=== PATIENT | male | born 1940 | race Caucasian/White ===

== ENCOUNTER 2022-06-05 06:23 | Day surgery (SDC) | payer MEDICARE, OTHER, SELFPAY ==
[2022-06-05] VITALS (8 sets, daily range): BP systolic 127–175; BP diastolic 63–77; PULSE 67–74; RESP 14–16; TEMP 36.3–36.4; O2SAT 98–99; BMI 25.1
[2022-06-05] MEDS: BUPIVACAINE 0.5% 30 ML INJECTION (07:11)
--- NOTE | 2022-06-05 07:47 | P.ORPRC_ITS ---
Procedure Note Procedure: PREOPERATIVE DIAGNOSIS: 1. Right Thumb finger flexor tenosynovitis - trigger thumb POSTOPERATIVE DIAGNOSIS: 1. Right thumb flexor tenosynovitis - trigger thumb PROCEDURE: 1. Right thumb flexor tendon sheath open release (A1 drew) SURGEON: Yonatan Piedra MD. MILKING SYSTEM INSTALLER: Manuel Mccullough PA-C ANESTHESIA: Local anesthetic 4 mL via 50:50 mixture of 1% lidocaine with epi and 0.5% marcaine plain EBL: 2mL IMPLANTS: None TOURNIQUET: None COMPLICATIONS: None evident INDICATIONS: The patient is a pleasant 81-year-old male who has experienced right thumb catching/triggering for number of months. It has progressively gotten worse. Given the failure of nonoperative management, and how this affects daily life, surgery was recommended. DESCRIPTION OF PROCEDURE: Following a thorough discussion of risks, benefits, and alternatives consent was obtained and the operative digit(s) was marked. The patient was brought to the operating room and placed supine on the operating table. Local anesthesia induction was undertaken in preop holding. No antibiotics were administered as this was planned to be a local case only. Proper time-out was performed identifying proper patient, site, and procedure. The operative extremity was prepped and draped in the appropriate sterile fashion using ChloraPrep. A incision was made on the palmar surface of the hand overlying the MCP joint region of the appropriate digit(s) respecting the palmar creases being cautious not to cross these perpendicularly. Sharp incision through the skin, and blunt dissection through subcutaneous tissue allowing protection of crossing neurologic structures. The A1 drew was visualized directly. It was incised sharply with a 15 blade. It was released completely from its distal to proximal extent under direct visualization. The tendon was inspected and found to be mildly striated consistent with some friction. The thumb A1 drew equivalent also was substantially thickened. Otherwise, it was intact. The tendon was removed out of the wound, and further inspected. The patient was asked to manually flex and extend the digits and showed no further catching. The catching, which was visualized initially, was no longer evident with reproduction of a manual fist and relaxation. Closure was performed with 4-O nylon in interrupted fashion. Soft dressings were applied, and the patient was transferred to the recovery room in stable condition. PLAN: 1. Encourage elevation of the operative extremity. 2. Range of motion of the fingers and hand/wrist as tolerated. 3. Ibuprofen/acetaminophen and/or Percocet as needed for pain control. 4. Follow up with PA visit in 12-16 days for wound check and suture removal.
--- NOTE | 2022-06-05 08:44 | SUR.PREOP ---
SAME DAY SURGERY LOCAL INJECTION SITE VERIFICATION WAS PERFORMED BY SURGEON/PA AND PATIENT PRIOR TO LOCAL ANESTHETIC BEING INJECTED TO OPERATIVE SITE.
== END 2022-06-05 08:25 | disposition home or self-care (01) ==
PROVIDERS: PCP Family Medicine; Visit Provider Orthopaedic Surgery Sports Medicine
PROC: (CPT 26055; principal; 2022-06-05 07:15)
DX: M65.311 Trigger thumb, right thumb (principal); M65.841 Other synovitis and tenosynovitis, right hand
CPT/HCPCS: 26055; J3490

== ENCOUNTER 2023-01-01 10:19 | Outpatient (CLI) | payer MEDICARE, OTHER, SELFPAY ==
[2023-01-01 14:22] LABS: Creatinine Urine 56.7 mg/dL
[2023-01-01 14:25] LABS: Albumin* 4.6 g/dL (3.3-5.0); Chloride* 101 mmol/L (96-114); Sodium* 135 mmol/L (135-149)
[2023-01-01 14:26] LABS: Microalbumin Creatinine Ratio 120 mg/g (0-30); Microalbumin Urine 7 mg/dL; Potassium* 4.4 mmol/L (3.6-5.1)
[2023-01-01 14:27] LABS: Cholesterol* 164 mg/dL (90-199)
[2023-01-01 14:28] LABS: Alanine Aminotransferase* 17 U/L (4-50); Alkaline Phosphatase* 55 U/L (40-150); Aspartate Amino Transferase* 29 U/L (12-35); Bilirubin Total* 0.7 mg/dL (0.1-1.5); Blood Urea Nitrogen* 14 mg/dL (7-30); Carbon Dioxide* 27 mmol/L (20-32); Estimated Glomerular Filt Rate 75 ml/min; Glucose* 104 mg/dL (60-115); Total Protein* 7.5 g/dL (6.0-8.3); Triglycerides* 88 mg/dL (40-149)
[2023-01-01 14:29] LABS: Calcium* 9.6 mg/dL (8.4-10.6); HDL Cholesterol* 64 mg/dL (>=40); LDL Cholesterol Calculated 82 mg/dL (<100)
[2023-01-01 14:38] LABS: PSA Screen* < 0.06 ng/mL (0.10-4.00)
[2023-01-01 14:47] LABS: Vitamin B12* 197 pg/mL (243-894)
== END 2023-01-01 10:20 | disposition home or self-care (01) ==
PROVIDERS: PCP Family Medicine; Visit Provider Family Medicine
DX: Z00.00 Encounter for general adult medical examination without abnormal findings (principal); I10 Essential (primary) hypertension; C61 Malignant neoplasm of prostate; M10.9 Gout, unspecified; Z13.6 Encounter for screening for cardiovascular disorders
CPT/HCPCS: 80053; 80061; 82043; 82570; 82607; 84153

== ENCOUNTER 2023-08-27 11:42 | Emergency (ER) | payer MEDICARE, OTHER, SELFPAY ==
[2023-08-27 12:04] VITALS: BP 154/68; PULSE 69; RESP 20; TEMP 36.8; O2SAT 98; BMI 25.8
--- NOTE | 2023-08-27 12:58 | ED_ITS ---
HPI - General Adult General Time Seen by Provider: 12:59 Date Seen: 08/27/23 Chief complaint: Ear/Nose/Throat Problem Stated complaint: Polyp in throat Time Seen by Provider: 08/27/23 12:36 Source: patient and RN notes reviewed Mode of arrival: ambulatory Limitations: no limitations History of Present Illness HPI narrative: Patient is an 83-year-old gentleman coming in with a ?polyp? in his throat and states it is bothering him. He is not having difficulty swallowing but it is always there and feels like he wants to swallow the lesion itself all the time. It is not painful for him right now. He thinks when it initially started he may have swallowed something in aggravated it. It is more irritating and not painful for him though. He has definite on that. He has had no fevers, no night sweats. He has a remote history of smoking 50 years ago, maybe smoked for 8 years. He was in urgent care yesterday, did get an ENT referral but cannot get in to see Dr. Pham until September 25. He does not want to wait that long. He has not had a tonsillectomy before. Related Data Home Medications Medication Instructions Recorded Confirmed calcium phosphate,dibasic 77 tab PO 08/27/23 mg-vitamin D3 400 unit tablet Previous Rx's Medication Instructions Recorded carvedilol 3.125 mg tablet 6.25 mg (2 x 3.125 mg) PO BID #360 01/01/23 tabs lisinopril 40 mg tablet 40 mg PO DAILY #90 tabs 01/03/23 mecobalamin (vitamin B12) 1,000 1,000 mcg PO QDAY #90 tabs 01/03/23 mcg chewable tablet omeprazole 20 mg capsule,delayed 20 mg PO DAILY #90 caps 01/03/23 release amlodipine 5 mg tablet 5 mg PO BID #180 tabs 01/15/23 Allergies Allergy/AdvReac Type Severity Reaction Status Date / Time No Known Allergies Allergy Verified 08/27/23 12:10 Review of Systems Narrative: As per HPI. [facility] Medical History Hoarse voice quality ?R49.0 - Dysphonia (ICD-10) Polyp of mouth ?K13.79 - Other lesions of oral mucosa (ICD-10) History of sciatica ?Z86.69 - Personal history of other diseases of the nervous system and sense organs (ICD-10) History of colonic polyps ?Z86.010 - Personal history of colonic polyps (ICD-10) Encounter for screening examination for infectious disease ?Z11.9 - Encounter for screening for infectious and parasitic diseases, unspecified (ICD-10) Prostate cancer ?C61 - Malignant neoplasm of prostate (ICD-10) Incontinence ?R32 - Unspecified urinary incontinence (ICD-10) Hypertension ?I10 - Essential (primary) hypertension (ICD-10) Surgical History Right trigger finger ?M65.30 - Trigger finger, unspecified finger (ICD-10) Status post surgery ?Z98.890 - Other specified postprocedural states (ICD-10) Status post laparoscopic cholecystectomy ?Z90.49 - Acquired absence of other specified parts of digestive tract (ICD- 10) History of prostatectomy ?Z90.79 - Acquired absence of other genital organ(s) (ICD-10) History of colonoscopy ?Z98.890 - Other specified postprocedural states (ICD-10) History of cataract extraction ?Z98.49 - Cataract extraction status, unspecified eye (ICD-10) History of prostate surgery ?Z98.890 - Other specified postprocedural states (ICD-10) History of cholecystectomy ?Z90.49 - Acquired absence of other specified parts of digestive tract (ICD- 10) Family History Mother Breast cancer Father Pancreatic cancer Other Aneurysm High blood pressure Social History Narrative: Alcohol ingestion, 1-4 drinks/week Does not use illicit drugs Former smoker Smoking Status: Never smoker Little interest or pleasure in doing things: not at all Feeling down, depressed, or hopeless: not at all Exam Const: Vital Signs, click to edit/add: Vital Signs - 24 hr 08/27/23 12:04 Temperature 98.3 F Pulse Rate [Right Pulse Oximeter] 69 Respiratory Rate 20 Blood Pressure [Ri ght Upper Arm] 154/68 H Pulse Oximetry 98 Oxygen Delivery Me thod Room Air This 83-year-old gentleman is ambulatory in the ED of his own accord, gait is normal. He is alert, interactive, no apparent distress, breathing easily on room air, no stridor. Face is atraumatic, sclera clear, conjugate gaze with equal pupils. Oropharynx reveals normal tongue, with use of a tongue blade, can see a whitish shiny appearing lesion that looks like it is over the right tonsillar base area. There is no underlying tissue swelling. This white lesion with which looks like a mucocele or cystocele type lesion is protruding from the tissues, maybe 0.5 cm upwards, maybe just over a little than 0.5 cm in diameter. There is no surrounding erythema at the base, he has a good posterior pharyngeal airway. He might have some hoarseness to his voice, have not met him before. His neck is supple, there is no underlying cervical adenopathy or cervical masses, no supraclavicular adenopathy. Lungs are clear, CV regular rate and rhythm no murmur. Documenting provider has reviewed patient's vital signs: yes Course Course ED Course: Reviewed with patient that I would talk to ENT, do think I can facilitate getting him and quicker. I will talk to ENT about any advanced imaging like soft tissue neck CT. On my visualization of this lesion, looks like it has benign findings but will talk to ENT. Consultations Consultation #1: Did speak with Dr. Pham regarding this patient. He will see him on Sunday afternoon in [place]. The imaging is declined by him at this time. IA did relate to him that it looked like a mucocele ir some type of benign appearing lesion, he will take a look 1st. He ultimately can order imaging later if it is needed. Time: 13:05 Vital Signs Vital signs: Initial Vital Signs Temperature 98.3 F 08/27/23 12:04 Temperature Source Temporal Artery Scan 08/27/23 12:04 Pulse Rate 69 08/27/23 12:04 Respiratory Rate 20 08/27/23 12:04 Blood Pressure 154/68 H 08/27/23 12:04 Blood Pressure Mean 96 08/27/23 12:04 Blood Pressure Position Sitting 08/27/23 12:04 Pulse Oximetry 98 08/27/23 12:04 Oxygen Delivery Method Room Air 08/27/23 12:04 Vital Signs Temperature 98.3 F 08/27/23 12:04 Pulse Rate 69 08/27/23 12:04 Respiratory Rate 20 08/27/23 12:04 Blood Pressure 154/68 H 08/27/23 12:04 Pulse Oximetry 98 08/27/23 12:04 Oxygen Delivery Method Room Air 08/27/23 12:04 Temperature 98.3 F 08/27/23 12:04 Pulse Rate 69 08/27/23 12:04 Respiratory Rate 20 08/27/23 12:04 Blood Pressure 154/68 H 08/27/23 12:04 Pulse Oximetry 98 08/27/23 12:04 Oxygen Delivery Method Room Air 08/27/23 12:04 Discharge Plan Discharge Clinical Impression: Mucocele of mouth Patient Disposition: Home, Self-Care Condition: Stable Additional Instructions: Follow up ENT appointment is scheduled at the [facility] on 08/29 with a 1:15pm appointment time. Please check in at 1pm to complete paperwork. If you have any questions or need to reschedule, please call [phone]. [facility] [address] [place] [address] Prescriptions: No Action carvedilol 3.125 mg tablet 6.25 mg PO BID Qty: 360 3RF Rx Instructions: must administer with a meal/food DOSE INCREASED calcium phos,dibas-vitamin D3 77-400 mg-unit tablet PO lisinopril 40 mg tablet 40 mg PO DAILY Qty: 90 3RF omeprazole 20 mg capsule,delayed release(DR/EC) 20 mg PO DAILY Qty: 90 3RF mecobalamin (vitamin B12) 1,000 mcg tablet,chewable 1,000 mcg PO QDAY Qty: 90 1RF amlodipine 5 mg tablet 5 mg PO BID Qty: 180 3RF Follow Up/Referrals: Shanelle Ivy DO [Primary Care Provider] - Stand Alone Forms: [employer] Info Instructions
== END 2023-08-27 13:23 | disposition home or self-care (01) ==
PROVIDERS: Emergency Provider Family Medicine; PCP Family Medicine
DX: K13.79 Other lesions of oral mucosa (principal)
CPT/HCPCS: 99282; 99283

== ENCOUNTER 2023-11-07 19:35 | Outpatient (CLI) | payer MEDICARE, OTHER, SELFPAY ==
--- NOTE | 2023-11-13 08:56 | W.PM.SLEEP ---
Sleep Study Details Details Interpreting Provider: Vero Date of Sleep Study: 11/07/23 Sleep Study Details: STUDY TYPE:? Home unattended ? BMI:? 25.8 ORDERING PROVIDER:? Vero INDICATION:? Concerns about sleep apnea ? SLEEP SUMMARY:? 570 minutes monitored RESPIRATORY SUMMARY:? AHI 35.8, supine 19.3, left lateral 39.4, right lateral 42.9 Low oxygen 75 3.1% of study oxygen less than 90% Snoring 2.3% PERIODIC LIMB MOVEMENTS OF SLEEP:? Not recorded during home study CARDIAC:? Range 56-89, mean 65.6 IMPRESSION:? Severe obstructive sleep apnea RECOMMENDATION: Treatment options would include AutoSet CPAP, dental appliance and/or airway expansion surgery. I would favor CPAP trial.
== END 2023-11-07 19:36 | disposition home or self-care (01) ==
LOC: SLEEP 19:36
PROVIDERS: PCP Family Medicine; Visit Provider Otolaryngology
DX: G47.33 Obstructive sleep apnea (adult) (pediatric) (principal)
CPT/HCPCS: 95806

== ENCOUNTER 2024-02-12 08:28 | Outpatient (CLI) | payer MEDICARE, OTHER, SELFPAY | END 2024-02-12 08:29 | disposition home or self-care (01) | LOC: NFLDREF 02-13 10:45 | PROVIDERS: PCP Family Medicine; Referring Provider Family Medicine; Visit Provider Family Medicine | DX: Z00.00 Encounter for general adult medical examination without abnormal findings (principal); I10 Essential (primary) hypertension; D64.9 Anemia, unspecified; C61 Malignant neoplasm of prostate | CPT/HCPCS: 80053; 80061; 82607; G0103 ==

== ENCOUNTER 2024-04-01 09:05 | Outpatient (CLI) | payer MEDICARE, OTHER, SELFPAY ==
--- OUTSIDE RECORDS SUMMARY | 2024-04-02 06:24 | XMS_ITS | Clinical Summary ---
Author Name Unknown Organization [facility] Address [place], [place] [address] Care Team Providers Care Paraplanner Name Role Phone Richard Cardona MD Primary Care Provider [phone] Allergies No known active allergies Medications Medication Sig Dispensed Refills Start Date End Date Status carvedilol (COREG) 3.125 mg tablet Take 3.125 mg by mouth 2 times daily with meals. Active lisinopril (PRINIVIL; ZESTRIL) 40 mg tablet Take 40 mg by mouth once daily. Active amLODIPine (NORVASC) 5 mg tablet Take 5 mg by mouth once daily. Active indomethacin (INDOCIN) 50 mg capsuleIndications:For gout flares Take 50 mg by mouth 3 times daily with meals. Indications: For gout flares Active Active Problems Problem Noted Date Diagnosed Date SBO (small bowel obstruction) 10/20/2019 Essential hypertension 10/20/2019 Choledocholithiasis 10/20/2019 Family History Medical History Relation Name Comments Brain cancer Mother Cancer-breast Sister Relation Name Status Comments Mother Sister Alive Social History Tobacco Use Types Packs/Day Years Used Date Smoking Tobacco: Never Alcohol Use Standard Drinks/Week Comments Yes 1 (1 standard drink = 0.6 oz pur e alcohol) Sex and Gender Information Value Date Recorded Sex Assigned at Not on file Gender Identity Not on file Sexual Orientation Not on file Obstetrics History Last Filed Vital Signs Vital Sign Reading Time Taken Comments Blood Pressure 164/75 10/24/2019 12:08 PM [employer] Pulse 59 10/24/2019 12:08 PM [employer] Temperature 36.6 ??C (97.9 ??F) 10/24/2019 7:36 AM CS T Respiratory Rate 16 10/24/2019 7:36 AM [employer] Oxygen Saturation 95% 10/24/2019 7:36 AM [employer] Inhaled Oxygen Concentration - - Weight 78 kg (172 lb) 10/20/2019 9:29 AM [employer] Height 175.3 cm (5' 9) 10/20/2019 9:29 AM [employer] Body Mass Index 25.4 10/20/2019 9:29 AM [employer] Plan of Treatment Not on file Medical Devices Implanted Type [employer] Device Identifier Shelf Expiration Date Model / Serial / Lot Stent Pancreatic [id number] Geenen Sof-Flex No Flap - [id number] Implanted:Qty: 1 on 10/20/2019 by Dominguez Sun MD at [facility] 11/29/2021 GPSOS-SF-[id number] - 7# / / [id number] Advance Directives * Full Code (Latest Code Status on File) Date Activated Date Inactivated Comments 10/21/2019 12:29 PM 10/24/2019 4:30 PM Question Answer Comments Code Status Discussion: Discussed * Full Code Date Activated Date Inactivated Comments 10/20/2019 12:30 PM 10/20/2019 6:32 PM Question Answer Comments Code Status Discussion: Not Discussed Care Teams Paraplanner Relationship Specialty Start Date End Date Richard Cardona MD [address] [place] [address] PCP - General Family Practice 10/20/19
== END 2024-04-01 09:06 | disposition home or self-care (01) ==
LOC: NFLDREF 04-02 06:23
PROVIDERS: PCP Family Medicine; Referring Provider Family Medicine; Visit Provider Family Medicine
DX: D64.9 Anemia, unspecified (principal)
CPT/HCPCS: 82728; 82746; 83540

== ENCOUNTER 2025-03-30 08:13 | Outpatient (CLI) | payer MEDICARE, OTHER, SELFPAY | END 2025-03-30 08:14 | disposition home or self-care (01) | LOC: NFLDREF 04-02 23:19 | PROVIDERS: PCP Family Medicine; Referring Provider Family Medicine; Visit Provider Family Medicine | DX: I10 Essential (primary) hypertension (principal); D64.9 Anemia, unspecified; D51.9 Vitamin B12 deficiency anemia, unspecified; C61 Malignant neoplasm of prostate; R53.83 Other fatigue; M10.9 Gout, unspecified; Z12.5 Encounter for screening for malignant neoplasm of prostate | CPT/HCPCS: 80053; 80061; 82306; 82607; 82728; 84443; G0103 ==

== ENCOUNTER 2025-05-07 15:00 | Outpatient (CLI) | payer MEDICARE, OTHER, SELFPAY | END 2025-05-07 15:01 | disposition home or self-care (01) | LOC: NFLDREF 05-08 13:14 | PROVIDERS: PCP Family Medicine; Referring Provider Family Medicine; Visit Provider Family Medicine | DX: E11.9 Type 2 diabetes mellitus without complications (principal) | CPT/HCPCS: 82043; 82570 ==